=== PATIENT | female | born 1925 | race Native Hawaiian/Other Pacific Islander ===

== ENCOUNTER 2016-07-12 08:55 | Inpatient (IN) | payer OTHER ==
[~2016-07-12 08:55] MED LIST: ASCO500T18 PO; BISACODYL LAXAT10 MG PR; DIGOX125 MCG PO; ENTERIC COATED325 MG PO; GLIP10TA55 PO; HYDR5TAB9 PO; KLOR-CON 1010 MEQ PO; LAXATIVE1 TAB PO; LIPITOR20 MG PO; METF500T PO; METO25TA4 PO; MIRTAZAPINE7.5 MG PO; MULTIVITAMIN PO; OMEP20CA PO; ONDA4TAB3 PO; POLY3350 PO; SYNTHROID137 MCG PO; TRAM50TA PO; TRIA37.541 PO; TYLENOL325 MG PO; ZINC220 MG PO
== END 2016-08-12 08:00 | disposition still patient (30) ==
LOC: PAVB 08:55
PROVIDERS: ADMIT Internal Medicine
DX: Z51.89 Encounter for other specified aftercare (principal)

== ENCOUNTER 2016-08-12 09:00 | Inpatient (IN) | payer OTHER ==
[2016-08-16] MEDS ORDERED: FURO40TA93 PO (06:57)
[2016-08-16] MEDS ORDERED: AMIO200T14 PO (07:00)
[2016-08-16] MEDS ORDERED: CEFTIN250 MG OR (07:58)
[2016-08-16] MEDS ORDERED: TIROSINT125 MCG OR (08:01)
[2016-08-28 11:58] LABS: POTASSIUM 4.5 mmol/L (3.6-5.2)
[2016-08-28 12:14] LABS: PLATELET COUNT 225 K/uL (152-353)
== END 2016-09-12 10:52 | disposition still patient (30) ==
LOC: PAVB 09:00
PROVIDERS: ADMIT Internal Medicine
DX: I50.23 Acute on chronic systolic (congestive) heart failure (principal); J18.9 Pneumonia, unspecified organism; J96.91 Respiratory failure, unspecified with hypoxia; M62.81 Muscle weakness (generalized); R26.2 Difficulty in walking, not elsewhere classified; S12.100A Unspecified displaced fracture of second cervical vertebra, initial encounter for closed fracture
CPT/HCPCS: 36415; 80048; 83880; 85027

== ENCOUNTER 2016-08-13 07:50 | Outpatient (CLI) | payer OTHER | END 2016-08-13 19:20 | disposition home or self-care (01) | LOC: LAB 07:50 | DX: E11.9 Type 2 diabetes mellitus without complications (principal) | CPT/HCPCS: 36415; 83036 ==

== ENCOUNTER 2016-08-15 14:09 | Inpatient (IN) | payer OTHER ==
[~2016-08-15] VITALS: Ht 154.9 cm; Wt 55.1 kg
[2016-08-16 04:00] VITALS: BP 97/58; TEMP 98.9
[2016-08-16 04:49] VITALS: BP 119/65; TEMP 100.2; Ht 154.9 cm; Wt 55.1 kg
--- NOTE | 2016-08-16 05:17 | NUR ---
08/16/2016 AT 2200 18 FR. LAIRD CATHETER PLACED WITH YELLOW CLOUDY URINE NOTED. URINE SENT TO LAB FOR U/A.
[2016-08-16 05:21] LABS: PLATELET COUNT 139 K/uL (152-353)
[2016-08-16 05:27] LABS: POTASSIUM 3.7 mmol/L (3.6-5.2)
[2016-08-16] MEDS ORDERED: FURO40TA93 PO (06:57)
[2016-08-16] MEDS ORDERED: AMIO200T14 PO (07:00)
[2016-08-16] MEDS ORDERED: CEFTIN250 MG OR (07:58)
[2016-08-16] MEDS ORDERED: TIROSINT125 MCG OR (08:01)
[2016-08-16 08:02] VITALS: BP 94/61; TEMP 98.7
[2016-08-16 11:59] VITALS: BP 94/55; TEMP 98.1
[2016-08-16 16:00] VITALS: BP 187/97; BP 95/78; TEMP 98; TEMP 98.8
[2016-08-16 20:21] VITALS: BP 121/55; TEMP 98
[2016-08-17 00:04] VITALS: BP 100/56; TEMP 98.6
[2016-08-17 05:14] LABS: PLATELET COUNT 110 K/uL (152-353)
[2016-08-17 05:20] VITALS: BP 80/57; TEMP 98.3
[2016-08-17 05:39] LABS: POTASSIUM 4.3 mmol/L (3.6-5.2)
[2016-08-17 08:00] VITALS: BP 90/69; TEMP 98.2
[2016-08-17 12:00] VITALS: BP 85/54; TEMP 98
[2016-08-17 16:00] VITALS: BP 92/64; TEMP 98
[2016-08-17 20:06] VITALS: BP 100/64; TEMP 98.4
[2016-08-18 00:36] VITALS: BP 96/62; TEMP 97.8
[2016-08-18 04:00] VITALS: BP 93/68; TEMP 97.6
[2016-08-18 05:21] LABS: PLATELET COUNT 127 K/uL (152-353)
[2016-08-18 05:48] LABS: POTASSIUM 4.5 mmol/L (3.6-5.2)
[2016-08-18 08:00] VITALS: BP 109/82; TEMP 98.3
[2016-08-18 11:58] VITALS: BP 100/53; TEMP 98.2
[2016-08-18 16:00] VITALS: BP 104/68; TEMP 98
[2016-08-18 20:12] VITALS: BP 103/65; TEMP 97.8
[2016-08-19 00:25] VITALS: BP 95/67; TEMP 98.2
[2016-08-19 05:23] LABS: PLATELET COUNT 129 K/uL (152-353)
[2016-08-19 05:41] VITALS: BP 102/73; TEMP 97.7
[2016-08-19 05:44] LABS: POTASSIUM 4.2 mmol/L (3.6-5.2)
[2016-08-19 08:00] VITALS: BP 128/81; TEMP 97.7
[2016-08-19 11:33] VITALS: BP 106/66; TEMP 97.6
--- NOTE | 2016-08-19 11:43 | NUR ---
IV SITE INFILTRATED AND LEAKING, IV SITE D/C'D WTIH TIP INTACT AND SITE CARE DONE. BLADDER TRAINING STARTED. [facility]
--- NOTE | 2016-08-19 13:18 | NUR ---
REPORT GIVEN TO JULIA TRONCOSO AT [facility].
--- NOTE | 2016-08-19 13:18 | NUR ---
IV SITE D/C'D WITH TIP INTACT AND SITE CARE DONE. LAIRD UNCLAMMPED AND RECLAMMPED.
--- NOTE | 2016-08-19 13:25 | NUR ---
PT TO [facility] VIA W/C WITH NAD PER ARELY DRAKE, PCT
== END 2016-08-19 13:45 | DRG 291 ==
LOC: LABW 14:09 → MED/SURG 15:09
PROVIDERS: Internal Medicine; ADMIT Internal Medicine
DX: I50.23 Acute on chronic systolic (congestive) heart failure (principal); J18.8 Other pneumonia, unspecified organism; J96.91 Respiratory failure, unspecified with hypoxia; N39.0 Urinary tract infection, site not specified; N17.8 Other acute kidney failure; J90 Pleural effusion, not elsewhere classified; B96.20 Unspecified Escherichia coli [E. coli] as the cause of diseases classified elsewhere; Z86.73 Personal history of transient ischemic attack (TIA), and cerebral infarction without residual deficits
CPT/HCPCS: 36415; 80048; 80053; 80162; 81000; 82550; 82570; 82948; 83735; 83880; 84300; 84443; 84484; 85027; 87077; 87086; 87088; 87186; 93005; 96365; 96366; 96367; 96372; 99220; G0378; J1644; J1940; J1956

== ENCOUNTER 2016-08-15 16:52 | Outpatient (CLI) | payer OTHER ==
[2016-08-15 17:54] LABS: PLATELET COUNT 163 K/uL (152-353)
[2016-08-16] MEDS ORDERED: FURO40TA93 PO (06:57)
[2016-08-16] MEDS ORDERED: AMIO200T14 PO (07:00)
[2016-08-16] MEDS ORDERED: CEFTIN250 MG OR (07:58)
[2016-08-16] MEDS ORDERED: TIROSINT125 MCG OR (08:01)
== END 2016-08-15 17:52 | disposition home or self-care (01) ==
LOC: LAB 16:52
PROVIDERS: Internal Medicine
DX: J96.91 Respiratory failure, unspecified with hypoxia (principal)
CPT/HCPCS: 80048; 83880; 85027

== ENCOUNTER 2016-09-12 11:35 | Inpatient (IN) | payer OTHER ==
[~2016-09-12 11:35] MED LIST changes: +AMIO200T14 PO; +CEFTIN250 MG OR; +FURO40TA93 PO; +TIROSINT125 MCG OR
[2016-09-26] MEDS ORDERED: SPIRONOLACT25 MG PO (01:48)
[2016-09-26] MEDS ORDERED: B-121000 MCG SL (01:49)
[2016-09-26] MEDS ORDERED: FLUT0.05 NAS (01:51)
[2016-09-26] MEDS ORDERED: LEVO0.1224 PO (01:52)
[2016-09-26] MEDS ORDERED: CLARITIN10 M1 PO (01:53)
[2016-09-26] MEDS ORDERED: OMEP20CA PO (01:56)
[2016-09-26] MEDS ORDERED: ARTIFICIAL TEAR1 OP (01:56)
[2016-09-26] MEDS ORDERED: DEXTLIQ63 PO (02:03)
[2016-09-26] MEDS ORDERED: MILK OF MA400 MG/5 M PO (02:03)
== END 2016-09-28 10:00 | disposition expired ==
LOC: PAVB 11:35
PROVIDERS: ADMIT Internal Medicine
DX: I50.23 Acute on chronic systolic (congestive) heart failure (principal); J18.9 Pneumonia, unspecified organism; J96.91 Respiratory failure, unspecified with hypoxia; M62.81 Muscle weakness (generalized); R26.2 Difficulty in walking, not elsewhere classified; S12.100A Unspecified displaced fracture of second cervical vertebra, initial encounter for closed fracture

== ENCOUNTER 2016-09-25 11:08 | Outpatient (CLI) | payer OTHER ==
[2016-09-25 11:33] LABS: POTASSIUM 3.9 mmol/L (3.6-5.2)
[2016-09-26] MEDS ORDERED: SPIRONOLACT25 MG PO (01:48)
[2016-09-26] MEDS ORDERED: B-121000 MCG SL (01:49)
[2016-09-26] MEDS ORDERED: FLUT0.05 NAS (01:51)
[2016-09-26] MEDS ORDERED: LEVO0.1224 PO (01:52)
[2016-09-26] MEDS ORDERED: CLARITIN10 M1 PO (01:53)
[2016-09-26] MEDS ORDERED: OMEP20CA PO (01:56)
[2016-09-26] MEDS ORDERED: ARTIFICIAL TEAR1 OP (01:56)
[2016-09-26] MEDS ORDERED: DEXTLIQ63 PO (02:03)
[2016-09-26] MEDS ORDERED: MILK OF MA400 MG/5 M PO (02:03)
== END 2016-09-25 13:08 | disposition home or self-care (01) ==
LOC: LAB 11:08
PROVIDERS: Internal Medicine
DX: I11.0 Hypertensive heart disease with heart failure (principal)
CPT/HCPCS: 80048; 83880

== ENCOUNTER 2016-09-25 20:55 | Inpatient (IN) | payer OTHER ==
[~2016-09-25] VITALS: Ht 157.5 cm; Wt 50.6 kg
[2016-09-25 21:00] VITALS: BP 107/63; TEMP 98.2
[2016-09-25 21:30] VITALS: BP 108/61
[2016-09-25 22:00] VITALS: BP 109/73
[2016-09-25 22:05] LABS: PLATELET COUNT 209 K/uL (152-353)
[2016-09-25 22:09] LABS: POTASSIUM 3.6 mmol/L (3.6-5.2)
[2016-09-26] VITALS (20 sets, daily range): BP systolic 85–185; BP diastolic 45–102; TEMP 97.2–208.8; Ht 157.5 cm; Wt 50.6 kg
[2016-09-26] MEDS ORDERED: SPIRONOLACT25 MG PO (01:48)
[2016-09-26] MEDS ORDERED: B-121000 MCG SL (01:49)
[2016-09-26] MEDS ORDERED: FLUT0.05 NAS (01:51)
[2016-09-26] MEDS ORDERED: LEVO0.1224 PO (01:52)
[2016-09-26] MEDS ORDERED: CLARITIN10 M1 PO (01:53)
[2016-09-26] MEDS ORDERED: ARTIFICIAL TEAR1 OP (01:56)
[2016-09-26] MEDS ORDERED: OMEP20CA PO (01:56)
[2016-09-26] MEDS ORDERED: DEXTLIQ63 PO (02:03)
[2016-09-26] MEDS ORDERED: MILK OF MA400 MG/5 M PO (02:03)
[2016-09-26 04:43] LABS: PLATELET COUNT 168 K/uL (152-353)
[2016-09-26 05:11] LABS: POTASSIUM 3.6 mmol/L (3.6-5.2)
[2016-09-27] VITALS (35 sets, daily range): BP systolic 92–141; BP diastolic 44–106; TEMP 98.3–99.3
[2016-09-27 06:41] LABS: POTASSIUM 3.7 mmol/L (3.6-5.2)
[2016-09-27 06:43] LABS: PLATELET COUNT 216 K/uL (152-353)
[2016-09-27 16:08] LABS: PARTIAL THROMBOPLASTIN TIME 24.4 SECONDS (24.5-33.6)
[2016-09-28] VITALS: BP 114/80; TEMP 100.8
[2016-09-28 01:00] VITALS: BP 111/59
[2016-09-28 02:00] VITALS: BP 111/59
[2016-09-28 03:00] VITALS: BP 112/72
[2016-09-28 04:00] VITALS: BP 110/71
[2016-09-28 05:00] VITALS: BP 80/40; TEMP 100
[2016-09-28 05:57] LABS: PLATELET COUNT 391 K/uL (152-353)
== END 2016-09-28 06:35 | disposition expired | DRG 293 ==
LOC: ED 20:55 → ICU 22:20 → MED/SURG 22:20 → ICU 09-26 12:44
PROVIDERS: Emergency Medicine; ADMIT Family Medicine
DX: I50.41 Acute combined systolic (congestive) and diastolic (congestive) heart failure (principal); I48.91 Unspecified atrial fibrillation; R41.82 Altered mental status, unspecified; E03.8 Other specified hypothyroidism; R00.0 Tachycardia, unspecified; R13.19 Other dysphagia; I46.9 Cardiac arrest, cause unspecified
CPT/HCPCS: 36415; 36600; 51702; 80048; 80053; 81000; 82550; 82805; 82962; 83735; 83880; 84439; 84443; 84479; 84484; 85027; 85610; 85730; 86376; 93005; 94760; 96374; 99284; J0282; J1650; J1940; J2060; J3475; J3480